=== PATIENT | female | born 1960 | race Caucasian/White ===

== ENCOUNTER 2023-07-15 23:44 | Emergency (ER) | payer BC ==
[2023-07-16] MEDS ORDERED: Boostrix 0.5 ML (Tdap) VIAL (>/=7 yrs of age) ONE (00:08)
== END 2023-07-16 00:30 | disposition home or self-care (01) ==
LOC: NAV ERS 23:44
DX: S91.331A Puncture wound without foreign body, right foot, initial encounter (principal); Z23 Encounter for immunization; W26.8XXA Contact with other sharp object(s), not elsewhere classified, initial encounter
CPT/HCPCS: 90471; 90715

== ENCOUNTER 2025-04-14 00:24 | Emergency (ER) | payer BC ==
[2025-04-14] MEDS ORDERED: Acetaminophen 500 MG TAB ONE (00:44)
== END 2025-04-14 02:20 | disposition home or self-care (01) ==
LOC: NAV ERS 00:24
DX: S82.62XA Displaced fracture of lateral malleolus of left fibula, initial encounter for closed fracture (principal); S93.401A Sprain of unspecified ligament of right ankle, initial encounter; S93.402A Sprain of unspecified ligament of left ankle, initial encounter; W01.0XXA Fall on same level from slipping, tripping and stumbling without subsequent striking against object, initial encounter
CPT/HCPCS: 99283